=== PATIENT | female | born 1950 | race Caucasian/White ===

== ENCOUNTER → 2017-11-13 | Outpatient (CLI) | payer MEDICARE, OTHER ==
[2017-11-13 13:00] LABS: THYROXINE (T4) 10.3 UG/DL (4.5-12.0)
[2017-11-13 13:00] LABS: FREE T3 3.1 PG/ML (2.2-4.0)
[2017-11-16 00:07] LABS: ACETYLCHOLINE RCPTOR BINDING A < 0.03 nmol/L (0.00-0.24)
== END ==
LOC: M WUC 09:26
DX: H53.2 Diplopia (principal)
CPT/HCPCS: 84443

== ENCOUNTER → 2022-02-07 | Outpatient (REF) | payer MEDICARE, OTHER | LOC: M PLALAB 15:10 | PROVIDERS: ATTEND Advanced Practice Midwife | DX: Z12.4 Encounter for screening for malignant neoplasm of cervix (principal); N71.0 Acute inflammatory disease of uterus; N95.0 Postmenopausal bleeding; N95.8 Other specified menopausal and perimenopausal disorders; N88.8 Other specified noninflammatory disorders of cervix uteri | CPT/HCPCS: 87624; 88305; G0123 ==

== ENCOUNTER → 2022-02-08 | Outpatient (CLI) | payer MEDICARE, OTHER | LOC: M WHC 10:29 | PROVIDERS: ATTEND Advanced Practice Midwife | DX: N95.0 Postmenopausal bleeding (principal); R92.2 Inconclusive mammogram; R93.41 Abnormal radiologic findings on diagnostic imaging of renal pelvis, ureter, or bladder ==

== ENCOUNTER → 2022-02-27 | Outpatient (CLI) | payer MEDICARE, OTHER | LOC: M WHC 12:54 | PROVIDERS: ATTEND Advanced Practice Midwife | DX: Z12.31 Encounter for screening mammogram for malignant neoplasm of breast (principal); N63.14 Unspecified lump in the right breast, lower inner quadrant | CPT/HCPCS: 76642; 77066; G0279 ==

== ENCOUNTER → 2022-03-07 | Outpatient (REF) | payer MEDICARE, OTHER | LOC: M SFHCWAGY 13:26 | PROVIDERS: ATTEND Obstetrics & Gynecology | DX: N71.9 Inflammatory disease of uterus, unspecified (principal) ==

== ENCOUNTER → 2022-03-14 | Outpatient (CLI) | payer MEDICARE, OTHER ==
[~2022-03-14] MED LIST: ASPI81CH33 PO
[2022-03-14 17:12] VITALS: BP 130/70
== END ==
LOC: M WHCPRO 14:28
PROVIDERS: ATTEND Surgery
DX: D24.1 Benign neoplasm of right breast (principal)
CPT/HCPCS: 10005; 19083; 19084; 77065; 88305; G0279; G0463

== ENCOUNTER → 2022-04-26 | Outpatient (REF) | payer MEDICARE, OTHER ==
[2022-04-26 10:47] LABS: BASO # 0.1 10^3/uL (0.0-0.2); BASO % 0.8 % (0.0-1.0); EOS # 0.1 10^3/uL (0.0-0.5); EOS % 1.3 % (0.0-3.0); HEMATOCRIT 44.9 % (36.0-47.0); HEMOGLOBIN 14.4 g/dl (12.0-15.5); LYMPH # 2.4 10^3/uL (1.5-5.0); LYMPH % 38.4 % (24.0-44.0); MEAN CORPUSCULAR HEMOGLOBIN 29.3 pg (27.0-33.0); MEAN CORPUSCULAR HGB CONC 32.1 g/dl (32.0-36.5); MEAN CORPUSCULAR VOLUME 91.3 fl (80.0-96.0); MONO # 0.4 10^3/uL (0.0-0.8); MONO % 5.9 % (2.0-8.0); NEUTROPHILS # 3.3 10^3/uL (1.5-8.5); NEUTROPHILS % 53.4 % (36.0-66.0); PLATELET COUNT, AUTOMATED 313 10^3/uL (150-450); RED BLOOD COUNT 4.92 10^6/uL (4.00-5.40); WHITE BLOOD COUNT 6.2 10^3/uL (4.0-10.0)
[2022-04-26 10:54] LABS: INR 0.91; PROTHROMBIN TIME 12.7 SECONDS (12.7-14.5)
[2022-04-26 10:55] LABS: PARTIAL THROMBOPLASTIN TIME 31.5 SECONDS (25.9-37.0)
[2022-04-26 11:13] LABS: ALBUMIN 3.7 GM/DL (3.2-5.2); ALT/SGPT 17 U/L (12-78); BILIRUBIN,TOTAL 0.5 MG/DL (0.2-1.0); BLOOD UREA NITROGEN 17 MG/DL (7-18); CALCIUM LEVEL 9.3 MG/DL (8.8-10.2); CARBON DIOXIDE LEVEL 29 MEQ/L (21-32); CHLORIDE LEVEL 106 MEQ/L (98-107); CREATININE FOR GFR 0.81 MG/DL (0.55-1.30); GLOMERULAR FILTRATION RATE > 60.0 (>39); GLUCOSE, FASTING 106 MG/DL (70-100); POTASSIUM SERUM 4.1 MEQ/L (3.5-5.1); SODIUM LEVEL 140 MEQ/L (136-145); TOTAL PROTEIN 7.2 GM/DL (6.4-8.2)
[2022-04-26 11:46] LABS: HEMOGLOBIN A1c 5.3 %
[2022-04-26 12:34] LABS: HEPATITIS C VIRUS ABY INDEX < 0.0 INDEX (<0.8)
[2022-04-26 15:13] LABS: FREE T4 1.01 NG/DL (0.76-1.46)
== END ==
LOC: M PLALAB 10:03
PROVIDERS: ATTEND Family Medicine
DX: Z01.810 Encounter for preprocedural cardiovascular examination (principal); N95.0 Postmenopausal bleeding; I10 Essential (primary) hypertension; Z11.9 Encounter for screening for infectious and parasitic diseases, unspecified; Z79.899 Other long term (current) drug therapy

== ENCOUNTER → 2022-05-29 | Outpatient (CLI) | payer MEDICARE, OTHER ==
[~2022-05-29] MED LIST changes: +AMLO1TAB24; +CEFD300C41 PO; +HYDR12CA; +ZITHTAB PO
== END ==
LOC: M PLAIMG 09:09
PROVIDERS: ATTEND Nurse Practitioner Family
DX: R91.8 Other nonspecific abnormal finding of lung field (principal); R10.9 Unspecified abdominal pain

== ENCOUNTER 2022-06-05 09:00 | Emergency (ER) | payer MEDICARE, OTHER ==
[~2022-06-05] VITALS: Ht 160 cm; Wt 71.0 kg
[~2022-06-05 09:00] MED LIST changes: -AMLO1TAB24; -CEFD300C41 PO; -HYDR12CA; -ZITHTAB PO
[2022-06-05] MEDS ORDERED: HYDR12CA (09:27)
[2022-06-05] MEDS ORDERED: AMLO1TAB24 (09:27)
[2022-06-05 09:58] LABS: BASO % 0.6 % (0.0-1.0); EOS # 0.1 10^3/uL (0.0-0.5); EOS % 1.1 % (0.0-3.0); HEMOGLOBIN 14.8 g/dl (12.0-15.5); LYMPH # 1.8 10^3/uL (1.5-5.0); LYMPH % 28.5 % (24.0-44.0); MEAN CORPUSCULAR HGB CONC 32.9 g/dl (32.0-36.5); MEAN CORPUSCULAR VOLUME 88.2 fl (80.0-96.0); MONO # 0.3 10^3/uL (0.0-0.8); MONO % 4.7 % (2.0-8.0); NEUTROPHILS % 64.8 % (36.0-66.0); PLATELET COUNT, AUTOMATED 339 10^3/uL (150-450); WHITE BLOOD COUNT 6.2 10^3/uL (4.0-10.0)
[2022-06-05 10:45] LABS: ALBUMIN 3.6 GM/DL (3.2-5.2); ALT/SGPT 17 U/L (12-78); BILIRUBIN,TOTAL 0.6 MG/DL (0.2-1.0); BLOOD UREA NITROGEN 13 MG/DL (7-18); CALCIUM LEVEL 9.3 MG/DL (8.8-10.2); CARBON DIOXIDE LEVEL 29 MEQ/L (21-32); CHLORIDE LEVEL 104 MEQ/L (98-107); CREATININE FOR GFR 0.76 MG/DL (0.55-1.30); GLOMERULAR FILTRATION RATE > 60.0 (>39); GLUCOSE, FASTING 105 MG/DL (70-100); SODIUM LEVEL 138 MEQ/L (136-145); TOTAL PROTEIN 7.3 GM/DL (6.4-8.2)
[2022-06-05] MEDS ORDERED: NS 1,000 ML IV ONE (14:35)
[2022-06-05] MEDS ORDERED: ISOVUE-370 76% 100ML VIAL As Ordered ONE (14:39)
[2022-06-05] MEDS ORDERED: ZITHTAB PO (16:36)
[2022-06-05] MEDS ORDERED: CEFD300C41 PO (16:36)
[2022-06-05 16:58] VITALS: BP 140/92
[2022-06-05 17:01] LABS: CK-MB VALUE MASS < 1.0 NG/ML (<3.6); CPK CREATINE PHOSPHOKINASE 38 U/L (34-145); MB/CK RELATIVE INDEX 2.63 (< OR =4)
== END 2022-06-05 17:04 | disposition home or self-care (01) ==
LOC: M ED 09:00
DX: J98.4 Other disorders of lung (principal); I10 Essential (primary) hypertension; Z88.0 Allergy status to penicillin
CPT/HCPCS: 71275; 80053; 82550; 82553; 84484; 85025; 93005; 96360; 96361; 99284; Q9967

== ENCOUNTER → 2022-06-22 | Outpatient (REF) | payer MEDICARE, OTHER ==
[~2022-06-22] MED LIST changes: +AMLO1TAB24; +CEFD300C41 PO; +HYDR12CA; +ZITHTAB PO
== END ==
LOC: M SFHCPLAZ 16:44
PROVIDERS: ATTEND Family Medicine
DX: Z53.20 Procedure and treatment not carried out because of patient's decision for unspecified reasons (principal)

== ENCOUNTER → 2022-06-22 | Outpatient (CLI) | payer MEDICARE, OTHER ==
[~2022-06-22] MED LIST changes: -AMLO1TAB24; +AMLO1TAB24 PO; -HYDR12CA; +HYDR12CA PO
[2022-06-22 14:26] LABS: HEMATOCRIT 45.9 % (36.0-47.0); HEMOGLOBIN 14.8 g/dl (12.0-15.5); MEAN CORPUSCULAR HEMOGLOBIN 29.2 pg (27.0-33.0); MEAN CORPUSCULAR HGB CONC 32.2 g/dl (32.0-36.5); MEAN CORPUSCULAR VOLUME 90.5 fl (80.0-96.0); PLATELET COUNT, AUTOMATED 289 10^3/uL (150-450); RED BLOOD COUNT 5.07 10^6/uL (4.00-5.40); WHITE BLOOD COUNT 6.2 10^3/uL (4.0-10.0)
[2022-06-22 14:43] LABS: BLOOD UREA NITROGEN 16 MG/DL (9-23); CALCIUM LEVEL 9.7 MG/DL (8.3-10.6); CARBON DIOXIDE LEVEL 29 MMOL/L (20-31); CHLORIDE LEVEL 102 MMOL/L (98-107); CREATININE FOR GFR 0.72 MG/DL (0.55-1.30); GLOMERULAR FILTRATION RATE > 60.0 (>39); GLUCOSE, FASTING 101 MG/DL (74-106); POTASSIUM SERUM 4.2 MMOL/L (3.5-5.1); SODIUM LEVEL 139 MMOL/L (136-145); THYROID STIMULATING HORMONE 2.121 uIU/ML (0.55-4.78)
== END ==
LOC: M PLALAB 10:51
PROVIDERS: ATTEND Family Medicine
DX: R91.1 Solitary pulmonary nodule (principal); R42 Dizziness and giddiness; Z79.899 Other long term (current) drug therapy

== ENCOUNTER → 2022-08-22 | Outpatient (CLI) | payer MEDICARE, OTHER | LOC: M PLALAB 10:44 | PROVIDERS: ATTEND Internal Medicine Hematology | DX: Z01.811 Encounter for preprocedural respiratory examination (principal) ==

== ENCOUNTER → 2022-08-22 | Outpatient (CLI) | payer MEDICARE, OTHER | LOC: M WHC 14:27 | PROVIDERS: ATTEND Surgery | DX: R92.8 Other abnormal and inconclusive findings on diagnostic imaging of breast (principal) | CPT/HCPCS: 77065; G0279 ==

== ENCOUNTER → 2022-08-27 | Outpatient (CLI) | payer MEDICARE, OTHER | LOC: M LABSMTC 09:19 | PROVIDERS: ATTEND Anesthesiology | DX: Z01.812 Encounter for preprocedural laboratory examination (principal); Z11.52 Encounter for screening for COVID-19 ==

== ENCOUNTER 2022-08-31 06:08 | Day surgery (SDC) | payer MEDICARE, OTHER ==
[~2022-08-31] VITALS: Ht 160 cm; Wt 68.0 kg
[~2022-08-31 06:08] MED LIST changes: +ceFAZolin SOD 2 GM in IV 1 EA IV ONE
[2022-08-31] MEDS ORDERED: LR 1,000 ML IV SCH ×2 (06:15→11:15)
[2022-08-31] MEDS ORDERED: HYDROmorphone HCL 2MG/ML 1ML VIAL As Ordered ONE (07:10)
[2022-08-31] MEDS ORDERED: fentaNYL 100 MCG/2 ML INJECTION As Ordered ONE (07:10)
[2022-08-31] MEDS ORDERED: KETOROLAC 60MG 2ML VIAL As Ordered ONE (07:11)
[2022-08-31] MEDS ORDERED: propofoL 200 MG/20 ML VIAL As Ordered ONE (07:11)
[2022-08-31] MEDS ORDERED: ONDANSETRON 4MG 2ML VIAL As Ordered ONE (07:11)
[2022-08-31] MEDS ORDERED: LIDOCAINE 2% 100MG/5ML SDV (FOR ANES.) As Ordered ONE (07:11)
[2022-08-31] MEDS ORDERED: MIDAZOLAM INJ 2MG/2ML VIAL As Ordered ONE (07:11)
[2022-08-31] MEDS ORDERED: ROCURONIUM BROMIDE 50MG/5ML VIAL As Ordered ONE ×2 (07:11→07:59)
[2022-08-31 07:12] LABS: HEMATOCRIT 44.4 % (36.0-47.0); HEMOGLOBIN 14.3 g/dl (12.0-15.5); MEAN CORPUSCULAR HEMOGLOBIN 28.3 pg (27.0-33.0); MEAN CORPUSCULAR HGB CONC 32.2 g/dl (32.0-36.5); MEAN CORPUSCULAR VOLUME 87.7 fl (80.0-96.0); PLATELET COUNT, AUTOMATED 284 10^3/uL (150-450); RED BLOOD COUNT 5.06 10^6/uL (4.00-5.40)
[2022-08-31] MEDS ORDERED: BUPIVACAINE HCL 0.25% 30ML VIAL As Ordered ONE (07:15)
[2022-08-31] MEDS ORDERED: METHYLENE BLUE 0.5% (5MG/ML) 10 ML AMP (PROVAYBLUE) As Ordered ONE ×2 (07:15→09:04)
[2022-08-31] MEDS ORDERED: ACETAMINOPHEN 1000MG 100ML IV BAG As Ordered ONE (07:16)
[2022-08-31] MEDS ORDERED: ePHEDrine SULFATE 25 MG/5 ML(5MG/ML) SYRINGE As Ordered ONE (07:50)
[2022-08-31] MEDS ORDERED: SUGAMMADEX SODIUM 500 MG/5 ML VIAL (BRIDION) As Ordered ONE (07:59)
[2022-08-31] MEDS ORDERED: PHENYLephrine 500MCG 5ML (100MCG/ML) SYRINGE As Ordered ONE (08:07)
[2022-08-31 08:21] LABS: HCG, SERUM QUALITATIVE NEGATIVE (NEGATIVE)
[2022-08-31] MEDS ORDERED: hydrALAZINE 20MG/ML 1ML VIAL As Ordered ONE (08:37)
[2022-08-31] MEDS ORDERED: ONDANSETRON 4MG 2ML VIAL IV PRN ×2 (11:15→11:40)
[2022-08-31] MEDS ORDERED: fentaNYL 100 MCG/2 ML INJECTION IV PRN (11:15)
[2022-08-31] MEDS ORDERED: METOCLOPRAMIDE INJ 10MG/2ML VIAL IV PRN (11:15)
[2022-08-31] MEDS ORDERED: oxyCODONE 5MG TAB PO PRN (11:15)
[2022-08-31] MEDS ORDERED: HYDROMORPHONE HCL 0.5 MG/ 0.5 ML SYRINGE IV PRN (11:15)
[2022-08-31] MEDS ORDERED: PERCOCET 5MG/325MG TAB PO PRN ×2 (11:40)
[2022-08-31] MEDS: LR 1,000 ML IV SCH ×2 (11:40→19:40)
[2022-08-31] MEDS ORDERED: MORPHINE 2 MG/ML 1ML VIAL IV PRN (11:40)
[2022-08-31] MEDS ORDERED: IBUP80TA PO (11:42)
[2022-08-31] MEDS ORDERED: PERC5TAB12 PO (11:43)
[2022-08-31] MEDS ORDERED: COLA100C5 PO (11:44)
[2022-08-31 15:00] VITALS: BP 142/70
[2022-08-31 16:00] VITALS: BP 128/63
[2022-08-31 17:06] VITALS: BP 127/60
[2022-08-31] MEDS: KETOROLAC 30 MG/ML 1ML VIAL IV SCH ×2 (17:13→22:11)
[2022-08-31 18:06] VITALS: BP 134/65
[2022-08-31 20:00] VITALS: BP 121/83
[2022-08-31] MEDS: DOCUSATE SODIUM 100MG CAPSULE PO SCH (21:23)
[2022-09-01] VITALS: BP 132/88
[2022-09-01 04:00] VITALS: BP 126/82
[2022-09-01] MEDS: KETOROLAC 30 MG/ML 1ML VIAL IV SCH (04:22)
[2022-09-01 08:00] VITALS: BP 150/73
[2022-09-01] MEDS: DOCUSATE SODIUM 100MG CAPSULE PO SCH (09:00)
[2022-09-01] MEDS ORDERED: amLODIPine 5 MG TAB PO ONE (10:00)
[2022-09-01] MEDS ORDERED: IBUPROFEN 800 MG TAB PO SCH (19:00)
== END 2022-09-01 10:07 | disposition home or self-care (01) ==
LOC: M SDC 06:08 → M PED 15:00 → M SDC 09-01 10:07
PROVIDERS: ATTEND Obstetrics & Gynecology
DX: C54.1 Malignant neoplasm of endometrium (principal); R11.2 Nausea with vomiting, unspecified; D25.9 Leiomyoma of uterus, unspecified; I10 Essential (primary) hypertension; R91.1 Solitary pulmonary nodule; E04.9 Nontoxic goiter, unspecified; Z79.899 Other long term (current) drug therapy; Z88.0 Allergy status to penicillin
CPT/HCPCS: 36415; 58573; 84703; 85027; 86850; 86900; 86901; 88305; 88307; 96374; 96376; J0131; J0360; J0690; J1100; J1170; J1885; J2250; J2370; J2405; J3010; Q9968; S2900

== ENCOUNTER 2022-11-05 10:00 | Emergency (ER) | payer MEDICARE, OTHER ==
[~2022-11-05] VITALS: Ht 160 cm; Wt 68.2 kg
[~2022-11-05 10:00] MED LIST changes: +COLA100C5 PO; +IBUP80TA PO; +PERC5TAB12 PO; -ceFAZolin SOD 2 GM in IV 1 EA IV ONE
[2022-11-05 10:02] VITALS: BP 150/84
[2022-11-05 12:21] LABS: BASO % 0.8 % (0.0-1.0); EOS % 0.8 % (0.0-3.0); HEMATOCRIT 48.5 % (36.0-47.0); HEMOGLOBIN 15.9 g/dl (12.0-15.5); LYMPH # 1.8 10^3/uL (1.5-5.0); LYMPH % 35.7 % (24.0-44.0); MEAN CORPUSCULAR HEMOGLOBIN 29.2 pg (27.0-33.0); MEAN CORPUSCULAR HGB CONC 32.8 g/dl (32.0-36.5); MEAN CORPUSCULAR VOLUME 89.2 fl (80.0-96.0); MONO # 0.2 10^3/uL (0.0-0.8); MONO % 4.5 % (2.0-8.0); NEUTROPHILS % 58.2 % (36.0-66.0); PLATELET COUNT, AUTOMATED 240 10^3/uL (150-450); RED BLOOD COUNT 5.44 10^6/uL (4.00-5.40); WHITE BLOOD COUNT 5.1 10^3/uL (4.0-10.0)
[2022-11-05 12:35] LABS: INR 0.92; PROTHROMBIN TIME 12.6 SECONDS (12.5-14.5)
[2022-11-05 12:36] LABS: PARTIAL THROMBOPLASTIN TIME 29.1 SECONDS (24.8-34.2)
[2022-11-05 12:45] LABS: CK-MB VALUE MASS < 1.0 NG/ML (<3.6); LIPASE 23 U/L (12-53)
[2022-11-05 12:47] LABS: ALKALINE PHOSPHATASE 115 U/L (46-116); ALT/SGPT 176 U/L (7.0-40); AST/SGOT 112 U/L (<34); BILIRUBIN,DIRECT 0.3 MG/DL (<0.4); BILIRUBIN,TOTAL 0.9 MG/DL (0.3-1.2)
[2022-11-05 12:48] LABS: CPK CREATINE PHOSPHOKINASE 48 U/L (34-145); MB/CK RELATIVE INDEX 2.08 (< OR =4)
[2022-11-05] MEDS ORDERED: ISOVUE-370 76% 100ML VIAL As Ordered ONE (13:08)
[2022-11-05] MEDS ORDERED: APIXABAN 5 MG TAB (ELIQUIS) PO ONE (15:00)
[2022-11-05] MEDS ORDERED: ELIQ5TAB PO (15:26)
== END 2022-11-05 16:05 | disposition home or self-care (01) ==
LOC: M ED 10:00
DX: K80.66 Calculus of gallbladder and bile duct with acute and chronic cholecystitis without obstruction (principal); I26.99 Other pulmonary embolism without acute cor pulmonale; I10 Essential (primary) hypertension; Z88.0 Allergy status to penicillin; Z79.899 Other long term (current) drug therapy
CPT/HCPCS: 36415; 71275; 74175; 76705; 80047; 80076; 81001; 82550; 82553; 83690; 84484; 85025; 85610; 85730; 93005; 93971; 99284; Q9967

== ENCOUNTER → 2022-11-12 | Outpatient (CLI) | payer MEDICARE, OTHER ==
[~2022-11-12] MED LIST changes: +ELIQ5TAB PO
== END ==
LOC: M PLALAB 13:33
PROVIDERS: ATTEND Obstetrics & Gynecology
DX: Z85.42 Personal history of malignant neoplasm of other parts of uterus (principal)

== ENCOUNTER → 2022-12-31 | Outpatient (CLI) | payer MEDICARE, OTHER | LOC: M RAD 16:02 | PROVIDERS: ATTEND Family Medicine | DX: R22.31 Localized swelling, mass and lump, right upper limb (principal) ==

== ENCOUNTER → 2023-03-18 | Outpatient (CLI) | payer MEDICARE, OTHER | LOC: M WHC 07:46 | PROVIDERS: ATTEND Family Medicine | DX: Z12.31 Encounter for screening mammogram for malignant neoplasm of breast (principal); Z78.0 Asymptomatic menopausal state; Z13.820 Encounter for screening for osteoporosis; M85.89 Other specified disorders of bone density and structure, multiple sites ==

== ENCOUNTER → 2023-06-04 | Outpatient (CLI) | payer MEDICARE, OTHER ==
[~2023-06-04] MED LIST changes: +CEFD1CAP9 PO; -CEFD300C41 PO
== END ==
LOC: M PLALAB 12:53
PROVIDERS: ATTEND Obstetrics & Gynecology
DX: Z85.42 Personal history of malignant neoplasm of other parts of uterus (principal)

== ENCOUNTER 2023-07-02 09:07 | Day surgery (SDC) | payer MEDICARE, OTHER ==
[~2023-07-02] VITALS: Ht 157.5 cm; Wt 62.6 kg
[~2023-07-02 09:07] MED LIST changes: +CYCLOPENTOLATE 1% OPHTH SOLN 2ML BTL OS SCH; +LIDOCAINE 1% SDV 5ML VIAL As Ordered ONE; +MOXIFLOXACIN 0.6MG/0.4ML INTRAOCULAR SYRINGE IO ONE; +OFLOXACIN 0.3 % (OCUFLOX) OPTH SOL 5ML OS SCH; +PHENYLEPHRINE 2.5% OPHTH SOL 2ML OS SCH; +PROPARACAINE 0.5% OPHTH SOL 15ML OS ONE; +TROPICAMIDE 1% OPHTH SOLN 15ML OS SCH
[2023-07-02] MEDS ORDERED: MIDAZOLAM INJ 2MG/2ML VIAL As Ordered ONE (11:13)
[2023-07-02 11:45] VITALS: BP 122/71; TEMP 96.8; O2SAT 95
== END 2023-07-02 12:03 | disposition home or self-care (01) ==
LOC: M SDC 09:07
PROVIDERS: ATTEND Ophthalmology
DX: H25.12 Age-related nuclear cataract, left eye (principal); I10 Essential (primary) hypertension; Z88.0 Allergy status to penicillin; Z79.899 Other long term (current) drug therapy
CPT/HCPCS: 66984; 92015; J2250; V2788

== ENCOUNTER 2023-08-06 07:12 | Day surgery (SDC) | payer MEDICARE, OTHER ==
[~2023-08-06] VITALS: Ht 154.9 cm; Wt 64.1 kg
[~2023-08-06 07:12] MED LIST changes: +BSS IRR 500ML/OMIDRIA 4ML IRR BAG (OR ONLY) As Ordered ONE; +CYCLOPENTOLATE 1% OPHTH SOLN 2ML BTL OD SCH; -CYCLOPENTOLATE 1% OPHTH SOLN 2ML BTL OS SCH; -MOXIFLOXACIN 0.6MG/0.4ML INTRAOCULAR SYRINGE IO ONE; +OFLOXACIN 0.3 % (OCUFLOX) OPTH SOL 5ML OD SCH; -OFLOXACIN 0.3 % (OCUFLOX) OPTH SOL 5ML OS SCH; +PHENYLEPHRINE 2.5% OPHTH SOL 2ML OD SCH; -PHENYLEPHRINE 2.5% OPHTH SOL 2ML OS SCH; +PROPARACAINE 0.5% OPHTH SOL 15ML OD ONE; -PROPARACAINE 0.5% OPHTH SOL 15ML OS ONE; +TROPICAMIDE 1% OPHTH SOLN 15ML OD SCH; -TROPICAMIDE 1% OPHTH SOLN 15ML OS SCH
[2023-08-06] MEDS ORDERED: fentaNYL 100 MCG/2 ML INJECTION As Ordered ONE (07:31)
[2023-08-06] MEDS ORDERED: MIDAZOLAM INJ 2MG/2ML VIAL As Ordered ONE (07:31)
[2023-08-06] MEDS ORDERED: MOXIFLOXACIN 0.6MG/0.4ML INTRAOCULAR SYRINGE As Ordered ONE (08:57)
[2023-08-06 09:50] VITALS: BP 132/64; TEMP 97.5; O2SAT 96
== END 2023-08-06 09:57 | disposition home or self-care (01) ==
LOC: M SDC 07:12
PROVIDERS: ATTEND Ophthalmology
DX: H25.11 Age-related nuclear cataract, right eye (principal); I10 Essential (primary) hypertension; Z86.718 Personal history of other venous thrombosis and embolism; G43.909 Migraine, unspecified, not intractable, without status migrainosus; Z79.899 Other long term (current) drug therapy; Z88.0 Allergy status to penicillin
CPT/HCPCS: 66984; J1097; J2250; J3010; V2788

== ENCOUNTER → 2024-06-03 | Outpatient (CLI) | payer MEDICARE, OTHER ==
[~2024-06-03] MED LIST changes: -BSS IRR 500ML/OMIDRIA 4ML IRR BAG (OR ONLY) As Ordered ONE; -CYCLOPENTOLATE 1% OPHTH SOLN 2ML BTL OD SCH; -LIDOCAINE 1% SDV 5ML VIAL As Ordered ONE; -OFLOXACIN 0.3 % (OCUFLOX) OPTH SOL 5ML OD SCH; -PHENYLEPHRINE 2.5% OPHTH SOL 2ML OD SCH; -PROPARACAINE 0.5% OPHTH SOL 15ML OD ONE; -TROPICAMIDE 1% OPHTH SOLN 15ML OD SCH
== END ==
LOC: M WHC 09:46
PROVIDERS: ATTEND Obstetrics & Gynecology
DX: Z12.31 Encounter for screening mammogram for malignant neoplasm of breast (principal); R92.333 Mammographic heterogeneous density, bilateral breasts

== ENCOUNTER → 2024-06-03 | Outpatient (CLI) | payer MEDICARE, OTHER | LOC: M PLALAB 10:48 | PROVIDERS: ATTEND Obstetrics & Gynecology | DX: Z85.42 Personal history of malignant neoplasm of other parts of uterus (principal) ==

== ENCOUNTER → 2024-06-16 | Outpatient (REF) | payer MEDICARE, OTHER | LOC: M SFHCPLAZ 15:18 | PROVIDERS: ATTEND Family Medicine | DX: Z13.6 Encounter for screening for cardiovascular disorders (principal); I10 Essential (primary) hypertension ==